=== PATIENT | female | born 1960 | race American Indian/Alaskan Native ===

== ENCOUNTER 2021-04-13 13:06 | Outpatient (CLI) | payer BC ==
[2021-04-13 14:18] LABS: Blood Urea Nitrogen 12 mg/dL (7-17)
--- NOTE | 2021-04-13 15:33 | XRay Report ---
CHEST 2 VIEWS INDICATION / CLINICAL INFORMATION: R91.1 SOLITARY PULMONARY NODULE. COMPARISON: None available. FINDINGS: SUPPORT DEVICES: None. HEART / MEDIASTINUM: No significant abnormality. LUNGS / PLEURA: No significant pulmonary or pleural abnormality. No pneumothorax. ADDITIONAL FINDINGS: No significant additional findings. IMPRESSION: 1. No acute findings. Signer Name: Arun Mario MD Signed: 04/13/2021 3:29 PM Workstation Name: [email or web address]
--- NOTE | 2021-04-13 16:34 | Cat Scan Report ---
CT CHEST WITH CONTRAST INDICATION / CLINICAL INFORMATION: left upper lobe nodue 5mm per dr to include more of the neck 100 ml omni 300 . TECHNIQUE: Axial CT images were obtained through the chest after IV contrast. All CT scans at this [facility] are performed using CT dose reduction for ALARA by means of automated exposure control. COMPARISON: Chest radiograph earlier same day FINDINGS: HEART: Enlarged CORONARY ARTERY CALCIFICATION: No significant abnormality THORACIC AORTA: No significant abnormality. MEDIASTINUM / BALJINDER: No significant abnormality. PLEURA: No pleural effusion. No pneumothorax. LUNGS: No acute air space or interstitial disease. 5 mm noncalcified nodule posterior aspect left upp er lobe. ADDITIONAL FINDINGS: Postsurgical findings from gastric bypass, without acute abnormality. UPPER ABDOMEN: No significant abnormality. SKELETAL SYSTEM: No significant abnormality. IMPRESSION: 1. No acute abnormality 2. Single incidental pulmonary nodule(s) in the left upper lobe measuring 5 mm with solid characteri stics. Recommendation according to Fleischner Society 2017 Guidelines: Low Risk Patient: No routine f ollow-up; High Risk Patient: Optional CT at 12 months. Signer Name: Arun Mario MD Signed: 04/13/2021 4:30 PM Workstation Name: [employer]
== END 2021-04-13 13:07 | disposition home or self-care (01) ==
LOC: CT 13:06
PROVIDERS: ATTEND Internal Medicine
DX: R91.1 Solitary pulmonary nodule (principal); F32.9 Major depressive disorder, single episode, unspecified; E07.9 Disorder of thyroid, unspecified; Z68.41 Body mass index [BMI] 40.0-44.9, adult
CPT/HCPCS: 36415; 71046; 71260; 82565; 84520; Q9967